=== PATIENT | female | born 1985 | race Caucasian/White ===

== ENCOUNTER 2016-09-06 15:11 | Emergency (ER) | payer OTHER ==
[2016-09-06] MEDS ORDERED: Lidocaine 2%Visc 15ml 20 MG/ML UDC PO ONE (15:52)
[2016-09-06] MEDS ORDERED: MAG HYDROX/AL HYDROX/SIMETH 30 ML UDC PO ONE (15:52)
[2016-09-06] MEDS ORDERED: HYOSCYAMINE SULFATE 0.125 MG TAB.SUBL SL ONE (16:00)
[2016-09-06 16:48] LABS: BASOPHILS % 0.4 (0.0-1.5); EOSINOPHILS % 1.9 % (0.0-6.8); LYMPHOCYTES # 2.6 # k/uL (0.6-4.0); MEAN CORPUSCULAR HEMOGLOBIN 28.7 pg (28.0-34.0); MONOCYTES # 0.3 # k/uL (0.0-0.9); NEUTROPHILS # 5.7 # k/uL (1.4-7.7)
[2016-09-06 17:04] LABS: eGFR (African) > 60; eGFR (Non-African) > 60
[2016-09-06] MEDS ORDERED: PANTOPRAZOLE SODIUM 40 MG TABLET PO ONE (17:44)
[2016-09-06] MEDS ORDERED: SUCRALFATE 1 GM TABLET PO ONE (17:53)
[2016-09-06] MEDS ORDERED: SUCRALFATE 1 GM TABLET PO SCH (18:00)
[2016-09-06 18:09] VITALS: BP 132/86
--- NOTE | 2016-09-06 18:31 | ED Physician Documentation ---
Abdominal Pain - HISTORIAN Historian: patient - HPI Stated Complaint: abdominal pain abdominal pain x2 days, and on et off chest pain Chief Complaint: Abdominal Pain Additonal Information: just treated for H.Pylori gastritis Onset: days ago (2) Duration: waxing, waning, sudden-onset Timing: still present Context: denies: out of country travel, bad food, recent trauma Severity: moderate Quality: aching, other (pinching) Front/Back of Body, Lg (Color): 1 - pain Associated Symptoms: chest pain Exacerbated by: nothing Relieved by: nothing Further Comments: no - ROS CONST: no problems GI/: denies: constipation, black stools, bloody urine, bloody stools, dark urine, problems urinating CVS/RESP: none EYES/ENT: none MS/SKIN/LYMPH: none NEURO/PSYCH: none - SOCIAL HX Smoking History: cigarettes Alcohol Use: none Drug Use: none - FAMILY HX Family History: gall stones, ulcer - PAST HX Past History: GERD, other (a fib) Other History: other (anxiety) Surgeries/Procedures: none Immunizations: referred to PCP Home Medications: Ambulatory Orders Medication Instructions Recorded LORazepam [Ativan] 0.5 mg PO TID 09/06/16 Allergies/Adverse Reactions: Allergies Allergy/AdvReac Type Severity Reaction Status Date / Time bupropion HCl Allergy Unknown No Reaction Verified 09/06/16 15:32 [From Wellbutrin] carbamazepine [From Tegretol] Allergy rash Verified 09/06/16 15:32 - VITAL SIGNS Vital Signs: Vital Signs Temp Pulse Resp BP Pulse Ox 97.8 F 89 16 132/86 97 09/06/16 15:38 09/06/16 18:06 09/06/16 18:06 09/06/16 18:06 09/06/16 18:06 - REVIEWED ASSESSMENTS Nursing Assessment Reviewed: Yes Vitals Reviewed: Yes Progress - Results/Orders Results/Orders: cbc, cmp, amylase ordered - Progress Progress: pt. given gi cocktail, helped pain to a 0/10 Critical Care Note - Critical Care Note Total Time (mins): 0 ED Results Lab/Radiology - Lab Results Lab Results: Lab Results 09/06/16 09/06/16 16:40 16:40 WBC 8.80 K/ul K/ul (4.00-12.00) RBC 5.44 M/ul H M/ul (3.90-5.20) Hgb 15.6 g/dL g/dL (12.0-16.0) Hct 44.5 % % (34.5-46.5) MCV 81.7 fl fl (80.0-100.0) MCH 28.7 pg pg (28.0-34.0) MCHC 35.2 g/dL g/dL (30.0-36.0) RDW 14.2 % % (11.3-14.3) Plt Count 317 K/mm3 K/mm3 (130-400) Neut % (Auto) 64.5 % % (39.0-79.0) Lymph % (Auto) 29.5 % % (16.0-50.0) [place] % (Auto) 3.0 % % (0.0-11.0) Eos % (Auto) 1.9 % % (0.0-6.8) Baso % (Auto) 0.4 (0.0-1.5) Neut # 5.7 # k/uL # k/uL (1.4-7.7) Lymph # 2.6 # k/uL # k/uL (0.6-4.0) [place] # 0.3 # k/uL # k/uL (0.0-0.9) Eos # 0.2 # k/uL # k/uL (0.0-0.6) Baso # 0.0 # k/uL # k/uL (0.0-0.5) Reactive Lymphs % 0.8 % % (0.0-5.0) Reactive Lymphs # 0.1 # k/uL # k/uL (0.0-0.8) Sodium 133 mmol/L L mmol/L (136-145) Potassium 3.2 mmol/L L mmol/L (3.5-5.0) Chloride 96 mmol/L L mmol/L (98-110) Carbon Dioxide 28 mmol/L mmol/L (20-32) BUN 11 mg/dL mg/dL (10-26) Creatinine 0.5 mg/dL mg/dL (0.4-1.5) Estimated Creat Clear 304 Est GFR ( Amer) > 60 (60 - ) Est GFR (Non-Af Amer) > 60 (60 - ) Glucose 118 mg/dL H mg/dL (70-99) Calcium 10.7 mg/dL H mg/dL (8.5-10.5) Total Bilirubin 0.4 mg/dL mg/dL (0.2-1.2) AST 17 U/L U/L (0-41) ALT 21 U/L U/L (0-45) Alkaline Phosphatase 107 U/L U/L (46-116) Total Protein 7.6 g/dL g/dL (6.0-8.5) Albumin 4.4 g/dL g/dL (3.0-5.5) Amylase 40 U/L U/L (20-104) - Radiology Radiology Impressions: none ordered - Orders Orders: ED Orders Category Date Time Status AMYLASE Routine Lab 09/06/16 16:40 Completed CBC/PLATELET/DIFF Routine Lab 09/06/16 16:40 Completed CMP Routine Lab 09/06/16 16:40 Completed Hyoscyamine Sulfate [Oscimin Sl] Med 09/06/16 16:00 Discontinued 0.25 mg SL NOW ONE Lidocaine 2%Visc 15ml [Xylocaine] Med 09/06/16 15:52 Discontinued 15 mg PO NOW ONE Mag Hydrox/Al Hydrox/Simeth [Mylanta] Med 09/06/16 15:52 Discontinued 30 ml PO NOW ONE Pantoprazole Sodium [Protonix] Med 09/06/16 17:44 Discontinued 40 mg PO NOW ONE Sucralfate [Carafate] Med 09/06/16 18:00 Ordered 1 gm PO 1T EKG WITH COMPARISON Routine Ther 09/06/16 Ordered Abdominal Pain Physical Exam - Physical Exam General Appearance: alert, moderate distress EENT: eye inspection normal, ENT inspection normal, pharynx normal, no signs of dehydration, KATERINE, no nystagmus, TM's nml NECK: normal inspection, thyroid normal, supple RESPIRATORY: no resp distress, chest non-tender, breath sounds normal CVS: reg rate & rhythm, heart sounds normal, equal pulses, no murmur, no gallop , PMI nml ABDOMEN: soft, no organomegaly, tenderness (epigastrium), decreased BS BACK: normal inspection, no CVA tenderness SKIN: warm/dry, normal color EXTREMITIES: non-tender, normal range of motion, no evidence of injury, no edema NEURO: oriented X3, CN's nml as tested, motor nml, sensation nml Vital Signs: Vital Signs Temp Pulse Resp BP Pulse Ox 97.8 F 89 16 132/86 97 09/06/16 15:38 09/06/16 18:06 09/06/16 18:06 09/06/16 18:06 09/06/16 18:06 Discharge Clincal Impression: Gastritis Qualifiers: Gastritis type: unspecified gastritis Chronicity: unspecified Gastritis bleeding: without bleeding Qualified Code(s): K29.70 - Gastritis, unspecified, without bleeding Home Medications: Ambulatory Orders LORazepam [Ativan] 0.5 mg PO TID 09/06/16 Comments: discharged in stable condition with scripts for carafate ac and hs, nexium 40 mg daily both for 3 weeks Condition: Stable Disposition: 01 HOME, SELF-CARE Decision to Admit: NO Decision Time: 18:20
== END 2016-09-06 17:50 | disposition home or self-care (01) ==
LOC: ED 15:11
DX: K29.70 Gastritis, unspecified, without bleeding (principal)
CPT/HCPCS: 80053; 82150; 85025; 93005; A9270; 99283

== ENCOUNTER 2016-11-10 17:05 | Emergency (ER) | payer OTHER ==
[2016-11-10 18:01] VITALS: BP 142/83
--- NOTE | 2016-11-10 18:02 | ED Physician Documentation ---
Skin Rash - HISTORIAN Historian: patient - HPI Stated Complaint: rash Chief Complaint: Skin Rash Additional Information: generalized puritic skin rash onset approx 3-4 days ago - no known exposure. alsoc/o exab epigastric and low sternal cp. on nexium prev hx h. pylori no dietary or other suspect etiol. pot has int at fib but in sinus rhythm today Onset: days ago (3-4) Timing: still present Duration: persistent since, intermittent pain Location: generalized (rash-puritic) Identified Cause?: No Context: Medication Exposure: none (no new recently taken off metoprolol) Context: Food Exposure: none Context: Other Exposure: denies: bee sting, wasp sting, ant bite, spider bite, poison henrik - ROS CONST: none (except as above) CVS/RESP: other (hx int at fib) EYES/ENT: none GI/: denies: vomiting, nausea MS/SKIN/LYMPH: none NEURO/PSYCH: anxiety - PAST HX Past History: A-Fib, CAD, other (h pylori anxiety gerd seizure-none fofr over 1 yr obst sleep apnea hyperlipidemia 7/800) Other History: none Surgeries/Procedures: Yes (septum t/a) Allergies/Adverse Reactions: Allergies Allergy/AdvReac Type Severity Reaction Status Date / Time bupropion HCl Allergy Unknown No Reaction Verified 11/10/16 17:22 [From Wellbutrin] carbamazepine [From Tegretol] Allergy rash Verified 11/10/16 17:22 Home Medications: Ambulatory Orders Medication Instructions Recorded Lorazepam [Ativan] 1 mg PO TID u2 11/02/16 Ergocalciferol (Vitamin D2) 50,000 unit PO WEEK 11/10/16 [Vitamin D2] Esomeprazole Magnesium [Nexium] 40 mg PO BID 11/10/16 - SOCIAL HX Smoking History: greater than 1 pack/day Alcohol Use: none Drug Use: none - FAMILY HX Family History: other (father w/ cigarette heart disewase) - VITAL SIGNS Vital Signs: Vital Signs Temp Pulse Resp BP Pulse Ox 98.2 F 89 20 135/80 98 11/10/16 17:25 11/10/16 17:25 11/10/16 17:25 11/10/16 17:25 11/10/16 17:25 - REVIEWED ASSESSMENTS Nursing Assessment Reviewed: Yes Vitals Reviewed: Yes Skin Rash Physical Exam - EXAM General Appearance: mild distress Skin: warm,dry, skin rash, erythema Location: generalized Character: asymmetric, macular, papular Symptoms: warmth Extremities: non-tender, nml ROM, no edema EENT: eyes nml inspection Neck: trachea midline, no swelling. No: stiff neck Respiratory: no resp distress, chest non-tender, breath sounds normal CVS: reg. rate & rhythm, heart sounds nml Abdomen: No: non-tender (epigastric area) Neuro/Psych: oriented x3, motor nml, sensation nml, mood/affect nml Discharge Clincal Impression: contact dermatitis udo, gerd, FRANKIE OBESITY AT FIB Home Medications: Ambulatory Orders Lorazepam [Ativan] 1 mg PO TID u2 11/02/16 Ergocalciferol (Vitamin D2) [Vitamin D2] 50,000 unit PO WEEK 11/10/16 Esomeprazole Magnesium [Nexium] 40 mg PO BID 11/10/16 Comments: ZANTAC FOR RASH AND GERD PLUS MYLANTA---[facility] Condition: Good Disposition: 01 HOME, SELF-CARE Decision to Admit: NO Decision Time: 18:13
== END 2016-11-10 17:59 | disposition home or self-care (01) ==
LOC: ED 17:05
DX: L25.9 Unspecified contact dermatitis, unspecified cause (principal); K21.9 Gastro-esophageal reflux disease without esophagitis; G47.33 Obstructive sleep apnea (adult) (pediatric); E66.9 Obesity, unspecified
CPT/HCPCS: 99283

== ENCOUNTER 2016-12-27 19:11 | Emergency (ER) | payer OTHER ==
[2016-12-27 19:27] VITALS: BP 137/87
[2016-12-27] MEDS ORDERED: CIPROFLOXACIN HCL 500 MG TABLET PO ONE (19:38)
[2016-12-27] MEDS ORDERED: CIPROFLOXACIN HCL/DEXAMETH 7.5 ML DROPS.SUSP OT ONE (19:40)
[2016-12-27] MEDS ORDERED: KETOROLAC TROMETHAMINE 60 MG/2 ML VIAL IM ONE (19:40)
--- NOTE | 2016-12-27 21:37 | ED Physician Documentation ---
Ear Complaints - HISTORIAN Historian: patient - HPI Stated Complaint: Lt earache since last night Chief Complaint: Ear Complaints Additional Information: pain since 12/28/16 Timing: still present Location of Pain: L ear Severity: moderate Associated Symptoms: jaw pain Further Comments: no - ROS CONST: no problems CVS/RESP: none GI/: denies: black stools, nausea, vomiting MS/SKIN/LYMPH: none NEURO/PSYCH: denies: weakness, numbness, anxiety, depression All Systems -: Yes - PAST HX Past History: ear tubes, frequent ear infections, other (hypothyroidism) Immunizations: referred to PCP Allergies/Adverse Reactions: Allergies Allergy/AdvReac Type Severity Reaction Status Date / Time bupropion HCl Allergy Unknown No Reaction Verified 12/27/16 19:28 [From Wellbutrin] carbamazepine [From Tegretol] Allergy rash Verified 12/27/16 19:28 Home Medications: Ambulatory Orders Medication Instructions Recorded Lorazepam [Ativan] 1 mg PO TID u2 11/02/16 Ergocalciferol (Vitamin D2) 50,000 unit PO WEEK 11/10/16 [Vitamin D2] Esomeprazole Magnesium [Nexium] 40 mg PO BID 11/10/16 Simvastatin [Zocor] 20 mg PO D 12/27/16 Venlafaxine HCl [Effexor] 37.5 mg PO D 12/27/16 - SOCIAL HX Smoking History: cigarettes Alcohol Use: occasionally Drug Use: none - FAMILY HX Family History: Yes - VITAL SIGNS Vital Signs: Vital Signs Temp Pulse Resp BP Pulse Ox 98.2 F 106 H 22 137/87 97 12/27/16 19:11 12/27/16 20:06 12/27/16 20:06 12/27/16 20:06 12/27/16 19:11 - REVIEWED ASSESSMENTS Nursing Assessment Reviewed: Yes Vitals Reviewed: Yes Progress - Results/Orders Results/Orders: no testing ordered - Progress Progress: pt. stable entire time in er Critical Care Note - Critical Care Note Total Time (mins): 0 ED Results Lab/Radiology - Lab Results Lab Results: none ordered - Radiology Radiology Impressions: none ordered - Orders Orders: ED Orders Category Date Time Status Ciprofloxacin HCl [Cipro] Med 12/27/16 19:38 Discontinued 500 mg PO NOW ONE Ciprofloxacin HCl/Dexameth [Ciprodex Otic Suspension] Med 12/27/16 19:40 Discontinued 2 ml OT 1T ONE Ketorolac Tromethamine [Toradol] Med 12/27/16 19:40 Discontinued 60 mg IM NOW ONE Ear Complaint Physical Exam - EXAM General Appearance: no acute distress, alert Ear: auricle nml, cold reduction roller.canal nml, pain w movement of auricl, left, fluid behind TM Mouth/Throat: lips nml, gums nml, pharynx nml Nose: nml inspection Head/Neck: atraumatic, neck nml inspection Eye: eyes nml inspection, PERRL Resp/CVS: chest non-tender, breath sounds nml, heart sounds nml, no resp. distress, lungs clear, reg. rate & rhythm Abdomen: non-tender, no organomegaly Skin: nml color, no skin rash Neuro/Psych: oriented x3, mood/affect nml Discharge Clincal Impression: Otitis media Qualifiers: Otitis media type: suppurative Chronicity: acute Laterality: left Recurrence: not specified as recurrent Spontaneous tympanic membrane rupture: without spontaneous rupture Qualified Code(s): H66.002 - Acute suppurative otitis media without spontaneous rupture of ear drum, left ear Referrals: Yanira Berger MD [Primary Care Provider] - 2 Days Home Medications: Ambulatory Orders Lorazepam [Ativan] 1 mg PO TID u2 11/02/16 Ergocalciferol (Vitamin D2) [Vitamin D2] 50,000 unit PO WEEK 11/10/16 Esomeprazole Magnesium [Nexium] 40 mg PO BID 11/10/16 Simvastatin [Zocor] 20 mg PO D 12/27/16 Venlafaxine HCl [Effexor] 37.5 mg PO D 12/27/16 Comments: discharged with scripts for ciprodex, cipro and meloxicam Condition: Stable Disposition: 01 HOME, SELF-CARE Decision to Admit: NO Decision Time: 20:00
== END 2016-12-27 19:50 | disposition home or self-care (01) ==
LOC: ED 19:11
DX: H66.002 Acute suppurative otitis media without spontaneous rupture of ear drum, left ear (principal)
CPT/HCPCS: 99283

== ENCOUNTER 2017-09-24 18:06 | Emergency (ER) | payer OTHER ==
--- NOTE | 2017-09-24 18:22 | ED Physician Documentation ---
Sore Throat/Dental Pain - HISTORIAN Historian: patient - HPI Chief Complaint: Sore Throat Additional Information: Patient has been in close contact with someone who has similar symptoms. Has been drinking after her. Has been nauseated with several episodes of emisis. No blood noted. Has had chills, no know fever. Mild left ear pain. No cough or nasal congestion at this time. Onset: days ago (2 days) Associated Symptoms: chills, sore throat, mild. denies: fever Further Comments: no - ROS CONST: no problems - PAST HX Past History: other (atrail fib, intracranial hypertension,) Other History: other (depression) Immunizations: referred to PCP Allergies/Adverse Reactions: Allergies Allergy/AdvReac Type Severity Reaction Status Date / Time bupropion HCl Allergy Unknown No Reaction Verified 09/24/17 18:29 [From Wellbutrin] carbamazepine [From Tegretol] Allergy rash Verified 09/24/17 18:29 Home Medications: Ambulatory Orders Medication Instructions Recorded Lorazepam [Ativan] 1 mg PO TID u2 11/02/16 Ergocalciferol (Vitamin D2) 50,000 unit PO WEEK 11/10/16 [Vitamin D2] Simvastatin [Zocor] 20 mg PO D 12/27/16 - SOCIAL HX Smoking History: less than 1 pack/day (1/2 ppd) Alcohol Use: none Drug Use: none - FAMILY HX Family History: No - VITAL SIGNS Vital Signs: Vital Signs Temp Pulse Resp BP Pulse Ox 98.7 F 95 H 16 151/90 98 09/24/17 18:08 09/24/17 18:08 09/24/17 18:08 09/24/17 18:08 09/24/17 18:08 - REVIEWED ASSESSMENTS Nursing Assessment Reviewed: Yes Vitals Reviewed: Yes ED Results Lab/Radiology - Lab Results Lab Results: Rapid strep negative - Orders Orders: ED Orders Category Date Time Status Rapid Strep [GRP A STREP SCREEN] Routine Lab 09/24/17 Ordered Sore throat Physical Exam - EXAM General Appearance: no acute distress, alert Head/Neck: head nml inspection, trachea midline, no lymphadenopathy, thyroid nml. No: cervical lymphadenopathy Mouth/Throat: lips nml, gums nml, voice nml, no drooling, no air way problems, pharyngeal erythema (mild). No: tonsillar exudate Ear/Nose: nml inspection Respiratory: no resp. distress, breath sounds nml, respiratory distress. No: wheezes, rales, rhonchi CVS: reg. rate & rhythm, heart sounds nml Abdomen: soft, no organomegaly, normal bowel sounds Skin: warm/dry Neuro/Psych: oriented x3 Discharge Clincal Impression: Upper respiratory infection Qualifiers: URI type: acute pharyngitis Referrals: Yanira Berger MD [Primary Care Provider] - 2 Days Additional Instructions: Drink a lot of fluids. Gargle with salt water. Do not drink or eat after anyone else. Take Tylenol to help with any pain or fever. A throat culture will be sent out, if it comes back positive for strep we will let you know. . Condition: Stable Disposition: 01 HOME, SELF-CARE Decision to Admit: NO Date of Decison to Admit: 09/24/17 Decision Time: 18:48
[2017-09-24 18:29] VITALS: BP 151/90
== END 2017-09-24 18:55 | disposition home or self-care (01) ==
LOC: ED 18:06
DX: J02.9 Acute pharyngitis, unspecified (principal)
CPT/HCPCS: 87070; 87880; 99282

== ENCOUNTER 2017-10-03 17:14 | Outpatient (CLI) | payer OTHER ==
[2017-10-03 17:52] LABS: BASOPHILS % 0.8 (0.0-1.5); EOSINOPHILS % 2.5 % (0.0-6.8); MEAN CORPUSCULAR HEMOGLOBIN 28.6 pg (28.0-34.0); MEAN CORPUSCULAR VOLUME 82.9 fl (80.0-100.0); MONOCYTES % 3.5 % (0.0-11.0)
[2017-10-03 18:08] LABS: eGFR (African) > 60; eGFR (Non-African) > 60
== END 2017-10-03 17:15 ==
LOC: LAB 17:14
PROVIDERS: ATTEND Physician Assistant
DX: R10.13 Epigastric pain (principal); R19.7 Diarrhea, unspecified
CPT/HCPCS: 36415; 80053; 85025; 86677

== ENCOUNTER 2017-12-27 14:32 | Outpatient (CLI) | payer OTHER ==
[2017-12-27 14:43] LABS: BASOPHILS % 0.7 (0.0-1.5); EOSINOPHILS % 1.9 % (0.0-6.8); MEAN CORPUSCULAR HEMOGLOBIN 27.8 pg (28.0-34.0); MEAN CORPUSCULAR VOLUME 82.3 fl (80.0-100.0); MONOCYTES % 3.2 % (0.0-11.0); NEUTROPHILS # 7.6 # k/uL (1.4-7.7)
[2017-12-27 15:18] LABS: eGFR (Non-African) > 60
== END 2017-12-27 14:59 ==
LOC: LAB 14:32
PROVIDERS: ATTEND Family Medicine
DX: Z51.81 Encounter for therapeutic drug level monitoring (principal); E55.9 Vitamin D deficiency, unspecified; E78.1 Pure hyperglyceridemia
CPT/HCPCS: 36415; 80053; 80061; 82306; 85025

== ENCOUNTER 2018-01-02 16:21 | Outpatient (CLI) | payer OTHER | END 2018-01-02 16:30 | LOC: RT 16:21 | PROVIDERS: ATTEND Internal Medicine Cardiovascular Disease | DX: I48.0 Paroxysmal atrial fibrillation (principal) ==

== ENCOUNTER 2018-02-20 20:49 | Emergency (ER) | payer OTHER ==
[2018-02-20 21:10] VITALS: BP 120/83
--- NOTE | 2018-02-20 21:17 | ED Physician Documentation ---
General Adult - HISTORIAN Historian: patient - HPI Stated Complaint: Left ear pain Chief Complaint: General Adult Additional Information: hours ago she heard strange noises in her left ear and a pop. Clear fluid drained from left ear continues to do so. Says ear hurts now. Denies fever, congestion. Takes ibuprofen and tylenol regularly for migraines and has not taken anything else for left ear. Denies putting anything into left ear. No other modifying factors or associated signs. - ROS CONST: denies: fever, recent illness - PAST HX Past History: A-Fib, other (HLD, migraines, intracranial hypertension) Surgeries/Procedures: other (PE tubes, additional surgery L ear as a child) Allergies/Adverse Reactions: Allergies Allergy/AdvReac Type Severity Reaction Status Date / Time bupropion HCl Allergy Unknown No Reaction Verified 02/20/18 21:06 [From Wellbutrin] carbamazepine [From Tegretol] Allergy rash Verified 02/20/18 21:06 promethazine [From Phenergan] Allergy Rash Verified 02/20/18 21:06 Home Medications: Ambulatory Orders Medication Instructions Recorded Lorazepam [Ativan] 1 mg PO TID u2 11/02/16 Ergocalciferol (Vitamin D2) 50,000 unit PO WEEK 11/10/16 [Vitamin D2] Simvastatin [Zocor] 20 mg PO D 12/27/16 Venlafaxine HCl [Effexor Cr] 75 mg PO DAILY av 12/27/17 Cephalexin [Keflex] 500 mg PO Q6H #40 capsule 02/20/18 - SOCIAL HX Smoking History: cigarettes (1 PPD since 13 y/o) - FAMILY HX Family History: No - VITAL SIGNS Vital Signs: Vital Signs Temp Pulse Resp BP Pulse Ox 151/90 09/24/17 18:55 - REVIEWED ASSESSMENTS Nursing Assessment Reviewed: Yes Vitals Reviewed: Yes General Adult Physical Exam - PHYSICAL EXAM GENERAL APPEARANCE: mild distress (anxious) EENT: eye inspection normal, pharynx normal, no signs of dehydration, TM's nml (right), other (air/fluid levels behind left TM, Cannot visualize perf. Clear flud in canal.) NECK: normal inspection, supple RESPIRATORY: no resp distress BACK: other (fluid movements w/o pain) SKIN: warm/dry, normal color EXTREMITIES: no evidence of injury NEURO: CN's nml as tested, motor nml, sensation nml, cognition normal Discharge Clincal Impression: Perforation of tympanic membrane, nontraumatic Qualifiers: Laterality: left Qualified Code(s): H72.92 - Unspecified perforation of tympanic membrane, left ear Referrals: Adilson Andrea MD [Primary Care Provider] - 2 Days Condition: Fair Disposition: 01 HOME, SELF-CARE Decision to Admit: NO Decision Time: 21:20
[2018-02-20] MEDS: CEPHALEXIN 250 MG/5 ML BTL PO ONE (21:18)
== END 2018-02-20 21:15 | disposition home or self-care (01) ==
LOC: ED 20:49
DX: H72.92 Unspecified perforation of tympanic membrane, left ear (principal)
CPT/HCPCS: 99282

== ENCOUNTER 2018-02-26 15:22 | Outpatient (CLI) | payer OTHER ==
--- NOTE | 2018-03-18 12:43 | OP Clinic Progress Note ---
REASON FOR VISIT: This 32-year-old female is seen in follow up of a left ear rupture, history of tympanostomies, and a right ear tympanoplasty. She has reduced hearing. She has used some Keflex previously. There has been otorrhea. There were sclerotic changes of the right eardrum of the berry-tympanum. There is a tiny perforation of the left ear with oozing. PLAN: She is changed to Augmentin 875 mg 1 twice a day for 10 days. Follow up in 2 weeks. cc: Dr. Adilson HERNANDEZ
== END 2018-02-26 15:23 ==
LOC: ENT 15:22
PROVIDERS: ATTEND Otolaryngology
DX: H66.90 Otitis media, unspecified, unspecified ear (principal)
CPT/HCPCS: 99213

== ENCOUNTER 2018-03-10 11:20 | Emergency (ER) | payer OTHER ==
[2018-03-10 11:34] VITALS: BP 148/97
--- NOTE | 2018-03-10 11:39 | ED Physician Documentation ---
General Adult - HISTORIAN Historian: patient - HPI Stated Complaint: EARACHE Chief Complaint: General Adult Onset: days ago Timing: still present Severity: moderate Further Comments: yes (Pt is a 32 yo female with L ear pain. Pt has had L ear pain and was seen by pcp and ENT and was rx'd abx and allergy meds. Ear pain persists, but now pt has generalized malaise achiness.) - ROS CONST: other (malaise, achy all over) EYES/ENT: other (L ear pain) CVS/RESP: none GI/: none MS/SKIN/LYMPH: none - PAST HX Past History: other (Afib, anxiey, HTN) Allergies/Adverse Reactions: Allergies Allergy/AdvReac Type Severity Reaction Status Date / Time bupropion HCl Allergy Unknown No Reaction Verified 03/10/18 11:35 [From Wellbutrin] carbamazepine [From Tegretol] Allergy rash Verified 03/10/18 11:35 promethazine [From Phenergan] Allergy Rash Verified 03/10/18 11:35 Home Medications: Ambulatory Orders Medication Instructions Recorded Lorazepam [Ativan] 1 mg PO TID u2 11/02/16 Ergocalciferol (Vitamin D2) 50,000 unit PO WEEK 11/10/16 [Vitamin D2] Simvastatin [Zocor] 20 mg PO D 12/27/16 Venlafaxine HCl [Effexor Cr] 75 mg PO DAILY av 12/27/17 - SOCIAL HX Smoking History: cigarettes - FAMILY HX Family History: No - VITAL SIGNS Vital Signs: Vital Signs Temp Pulse Resp BP Pulse Ox 99 F 78 20 148/97 98 03/10/18 11:31 03/10/18 11:31 03/10/18 11:31 03/10/18 11:31 03/10/18 11:31 - REVIEWED ASSESSMENTS Nursing Assessment Reviewed: Yes Vitals Reviewed: Yes Progress - Progress Progress: Rx Z-stevie. Use as directed. Rx Tramadol 50 mg. Take one every 6 hours as needed for pain. Follow up with ENT specialist if symptoms persist. General Adult Physical Exam - PHYSICAL EXAM GENERAL APPEARANCE: moderate distress EENT: eye inspection normal, pharynx normal, TM erythema NECK: normal inspection, supple. No: lymphadenopathy RESPIRATORY: no resp distress, chest non-tender, breath sounds normal CVS: reg rate & rhythm, heart sounds normal BACK: normal inspection, no CVA tenderness SKIN: warm/dry, normal color EXTREMITIES: non-tender, normal range of motion, no evidence of injury, no edema NEURO: oriented X3, motor nml, sensation nml Discharge Clincal Impression: persistent L ear pain Referrals: Adilson Andrea MD [Primary Care Provider] - Condition: Good Disposition: 01 HOME, SELF-CARE Decision to Admit: NO Decision Time: 11:55
== END 2018-03-10 11:56 | disposition home or self-care (01) ==
LOC: ED 11:20
DX: H92.02 Otalgia, left ear (principal)
CPT/HCPCS: 99282

== ENCOUNTER 2018-03-19 03:56 | Emergency (ER) | payer OTHER ==
[2018-03-19] MEDS ORDERED: 0.9 % SODIUM CHLORIDE 1,000 ML IV ONE ×2 (04:20→05:10)
--- NOTE | 2018-03-19 04:20 | ED Physician Documentation ---
General Adult - HISTORIAN Historian: patient - HPI Stated Complaint: R flank pain Chief Complaint: General Adult Onset: hours Timing: still present Severity: moderate Further Comments: yes (Pt is a 32 yo female with R flank pain. Pain awoke pt from sleep. Pt has had n/v. No fever. BM's have been normal.) - ROS CONST: no problems EYES/ENT: none CVS/RESP: none GI/: abdominal pain, vomiting, nausea MS/SKIN/LYMPH: none - PAST HX Past History: other (Afib, intracranial hypertension, seizures, anxiety.) Surgeries/Procedures: other (tonsilectomy) Allergies/Adverse Reactions: Allergies Allergy/AdvReac Type Severity Reaction Status Date / Time bupropion HCl Allergy Unknown No Reaction Verified 03/19/18 04:31 [From Wellbutrin] carbamazepine [From Tegretol] Allergy rash Verified 03/19/18 04:31 promethazine [From Phenergan] Allergy Rash Verified 03/19/18 04:31 Home Medications: Ambulatory Orders Medication Instructions Recorded Lorazepam [Ativan] 1 mg PO TID u2 11/02/16 Ergocalciferol (Vitamin D2) 50,000 unit PO WEEK 11/10/16 [Vitamin D2] Simvastatin [Zocor] 20 mg PO D 12/27/16 Venlafaxine HCl [Effexor Cr] 75 mg PO DAILY av 12/27/17 Acetaminophen [Tylenol] 650 mg PO Q4 PRN 03/19/18 Ibuprofen 200 mg PO Q6 PRN 03/19/18 - SOCIAL HX Smoking History: cigarettes - FAMILY HX Family History: No - VITAL SIGNS Vital Signs: Vital Signs Temp Pulse Resp BP Pulse Ox 148/97 03/10/18 11:57 - REVIEWED ASSESSMENTS Nursing Assessment Reviewed: Yes Vitals Reviewed: Yes Progress - Progress Progress: NS 1 L IVF Zofran 4 mg IV Toradol 30 mg IV Dilaudid 0.5 mg IV (Pt said she does not like IV meds and would take only 1/2 the intended 1 mg dose.) NS 1 L IVF Percocet 5/325 2 tablets po in ER. U/a - 3+ blood; neg nitrites; neg leukocytes. CT abd/pelvis w/o contrast: Urinary tract: There are bilateral nonobstructing renal calculi. There is mild right hydronephrosis without ureteral calculi. No left hydronephrosis or hydroureter bilaterally. No urinary bladder calculi. Miscellaneous: There are calcified granulomas in the liver and spleen. The liver is diffusely dilated and enlarged up to 24 cm cephalocaudal. The spleen is enlarged up to 14.8 cm cephalocaudal. The noncontrast pancreas, gallbladder, adrenal glands are unremarkable. No abnormal bowel dilatation, free air, free fluid, or suspicious adenopathy. The appendix is not dilated and does not appear inflamed. There are mild degenerative changes of the hips. There is mild lumbar degenerative disc disease. There is a lumbosacral transitional vertebrae with partial lumbarization of S1. IMPRESSION: 1. Bilateral nonobstructing nephrolithiasis. 2. Mild right hydronephrosis without hydroureter or evidence of obstructing calculi. This appearance may be due to recently passed calculus from the right urinary tract. 3. Diffuse fatty infiltration of the liver and hepatosplenomegaly. ? non-opaque stone d/c instructions: Rx Percocet (5/325). Take one or two tablets by mouth every 4 to 6 hours as needed for moderate to severe pain. Rx Zofran 4 mg ODT. Take one every 8 hours as needed for nausea/vomiting. Rx Bactrim DS. Take one every 12 hours for 7 days. Rx Tamsulosin 0.4 mg. Take one by mouth once daily for 5 days or until stone passes. General Adult Physical Exam - PHYSICAL EXAM GENERAL APPEARANCE: moderate distress EENT: pharynx normal NECK: normal inspection, supple RESPIRATORY: no resp distress, chest non-tender, breath sounds normal CVS: reg rate & rhythm, heart sounds normal ABDOMEN: soft, normal bowel sounds, tenderness (R) BACK: normal inspection, CVA tenderness (R) SKIN: warm/dry, normal color EXTREMITIES: non-tender, normal range of motion, no evidence of injury NEURO: oriented X3, motor nml, sensation nml Discharge Clincal Impression: Right flank pain, ? non-opaque kidney stone Referrals: Adilson Andrea MD [Primary Care Provider] - Condition: Stable Disposition: 01 HOME, SELF-CARE Decision to Admit: NO Decision Time: 06:34
[2018-03-19] MEDS ORDERED: ONDANSETRON HCL/PF 4 MG/ 2ML VIAL IVP ONE (04:21)
[2018-03-19] MEDS ORDERED: KETOROLAC TROMETHAMINE 30 MG/1ML VIAL IVP ONE (04:23)
[2018-03-19 04:30] LABS: BASOPHILS % 0.7 (0.0-1.5); EOSINOPHILS % 2.1 % (0.0-6.8); MEAN CORPUSCULAR HEMOGLOBIN 28.9 pg (28.0-34.0); MEAN CORPUSCULAR VOLUME 82.3 fl (80.0-100.0); MONOCYTES % 4.3 % (0.0-11.0); NEUTROPHILS # 5.8 # k/uL (1.4-7.7)
[2018-03-19 04:48] LABS: eGFR (Non-African) > 60
[2018-03-19] MEDS ORDERED: HYDROmorphone HCL/PF 2 MG/ML DISP.SYRIN ONE (04:56)
[2018-03-19] MEDS ORDERED: HYDROmorphone HCL/PF 1 MG/ML DISP.SYRIN IVP ONE (04:56)
[2018-03-19] MEDS ORDERED: oxyCODONE/ACETAMINOPHEN 5/325 TABLET PO ONE (05:37)
[2018-03-19 05:48] LABS: COLOR,URINE BROWN (YELLOW)
[2018-03-19 05:49] LABS: APPEARANCE,URINE CLEAR (CLEAR); OCCULT BLOOD,URINE 3+ (NEGATIVE); URINE HCG NEGATIVE (NEGATIVE); UROBILINOGEN URINE 0.2 Eu (0.2-1.0)
[2018-03-19 06:17] VITALS: BP 121/89
[2018-03-19] MEDS ORDERED: TAMSULOSIN HCL 0.4 MG CAP.ER.24H PO ONE ×2 (06:21)
--- NOTE | 2018-03-19 06:35 | Diagnostic Imaging Report ---
LADONNA LEBRON [facility] [address] [facility] [address] [place], [place]. [address] Report Submission Date: Mar 19, 2018 5:01:46 AM CDT Patient Study Name: CATRACHITO ARIAS Date: Mar 19, 2018 4:38:48 AM CDT Modality Type: CT\SR Gender: F Description: CT ABD PELVIS W/O CO : 83 Institution: [facility] Physician: LADONNA LEBRON HISTORY: 32-year-old female with right flank pain, history of urolithiasis. COMPARISON: None available TECHNIQUE: Helical CT images of the abdomen and pelvis were performed without contrast. Sagittal and coronal reformatted images were obtained. FINDINGS: Urinary tract: There are bilateral nonobstructing renal calculi. There is mild right hydronephrosis without ureteral calculi. No left hydronephrosis or hydroureter bilaterally. No urinary bladder calculi. Miscellaneous: There are calcified granulomas in the liver and spleen. The liver is diffusely dilated and enlarged up to 24 cm cephalocaudal. The spleen is enlarged up to 14.8 cm cephalocaudal. The noncontrast pancreas, gallbladder, adrenal glands are unremarkable. No abnormal bowel dilatation, free air, free fluid, or suspicious adenopathy. The appendix is not dilated and does not appear inflamed. There are mild degenerative changes of the hips. There is mild lumbar degenerative disc disease. There is a lumbosacral transitional vertebrae with partial lumbarization of S1. IMPRESSION: 1. Bilateral nonobstructing nephrolithiasis. 2. Mild right hydronephrosis without hydroureter or evidence of obstructing calculi. This appearance may be due to recently passed calculus from the right urinary tract. 3. Diffuse fatty infiltration of the liver and hepatosplenomegaly. Electronically signed on Mar 19, 2018 5:01:46 AM CDT by: Surjit HERNANDEZ
== END 2018-03-19 06:30 | disposition home or self-care (01) ==
LOC: ED 03:56
DX: R10.9 Unspecified abdominal pain (principal)
CPT/HCPCS: 74176; 80053; 81002; 81025; 83690; 85025; A9270; J1170; J1885; J2405; J7030; 96365; 96366; 96375; 99284; S1016

== ENCOUNTER 2018-04-23 22:38 | Emergency (ER) | payer OTHER ==
--- NOTE | 2018-04-23 23:04 | ED Physician Documentation ---
Female Urogenital Problems - HISTORIAN Historian: patient - HPI Stated Complaint: Right flank pain Chief Complaint: Female Urogenital Problems Onset: hours (1200) Further Comments: yes (32 year old female patient presents with complaint of right flank pain. Patient concerned something may be wrong with her kidney. Report "hydro-something" on my CT. Old records reviewed. Patient was seen on 03/19/18 in ER, no obstructing renal calculi on CT, 3+ blood in urine on 03/19/18; patient has not followed up with PCP or urology since ER visit. States pain started today in Right flank at 1200; reports taking tylenol and ibuprofen today. Patient reports her pain feels simlar to her previous ER visit; however, no calculi was seen on CT.) - Associated Symptoms Urinary Symptoms: blood in urine - ROS CONST: none GI/: denies: nausea, vomiting, diarrhea CVS/RESP: none EYES/ENT: none NEURO/PSYCH: none MS/SKIN/LYMPH: none - PAST HX Past History: other (A fib, intracranial HTN, seizures, anxiety) Allergies/Adverse Reactions: Allergies Allergy/AdvReac Type Severity Reaction Status Date / Time bupropion HCl Allergy Unknown No Reaction Verified 04/23/18 23:00 [From Wellbutrin] carbamazepine [From Tegretol] Allergy rash Verified 04/23/18 23:00 promethazine [From Phenergan] Allergy Rash Verified 04/23/18 23:00 Home Medications: Ambulatory Orders Medication Instructions Recorded Lorazepam [Ativan] 1 mg PO TID u2 11/02/16 Ergocalciferol (Vitamin D2) 50,000 unit PO WEEK 11/10/16 [Vitamin D2] Ciprofloxacin HCl [Cipro] 500 mg PO BID #14 tablet 04/24/18 - SOCIAL HX Smoking History: cigarettes - FAMILY HX Family History: denies: none - VITAL SIGNS Vital Signs: Vital Signs Temp Pulse Resp BP Pulse Ox 98.6 F 113 H 20 155/99 98 04/23/18 22:40 04/23/18 22:40 04/23/18 22:40 04/23/18 22:40 04/23/18 22:40 - REVIEWED ASSESSMENTS Nursing Assessment Reviewed: Yes Vitals Reviewed: Yes Progress - Progress Progress: Discussed risk vs benefit of repeat CT abd/pelvis; patient concerned she has a kidney stone. Patient refused stadol and toradol IM Reviewed CT results. Will treat acute cystitis with antibiotic. Instructed patient to see PCP after antibiotics for repeat UA. ED Results Lab/Radiology - Radiology Radiology Impressions: CT abdomen and pelvis without contrast CLINICAL HISTORY: RIGHT FLANK PAIN TONIGHT, HX OF STONES AND FRQUENT UTI. NEGATIVE URINE HCG IN ED TONIGHT. (Hx) / ITS.REASON hematuria, right flank pain (DICOM Hx) TECHNIQUE: 5 mm contiguous axial images of the abdomen and pelvis non contrast. FINDINGS: The lung bases are clear. The evaluation is limited without IV contrast. There is mild diffuse fatty infiltration liver. Noncontrast liver, spleen, adrenal glands and pancreas are otherwise unremarkable. Gallbladder is nondistended. There are bilateral small nonobstructing kidney stones. Urinary bladder is Achilles tendon. The uterus is unremarkable. The bowel loops are nondistended. There is no ascites pneumoperitoneum. The appendix is normal. No lymphadenopathy. No destructive osseous lesions. IMPRESSION: 1. Nonobstructing bilateral kidney stones. 2. Hepatic steatosis Female Urogenital Problems - EXAM General Appearance: mild distress Respiratory: no resp. 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
[2018-04-23] MEDS ORDERED: KETOROLAC TROMETHAMINE 60 MG/2 ML VIAL IM ONE (23:17)
[2018-04-23] MEDS ORDERED: BUTORPHANOL TARTRATE 2 MG/ML VIAL IM ONE (23:17)
--- NOTE | 2018-04-23 23:45 | Diagnostic Imaging Report ---
GENET LOPEZ (METAL GRINDER) - ER [facility] [place] [facility] [address] [facility] [address] [place], [place]. [address] Report Submission Date: Apr 23, 2018 11:43:25 PM CDT Patient Study Name: CATRACHITO ARIAS Date: Apr 23, 2018 11:24:26 PM CDT Modality Type: CT Gender: F Description: CT ABD PELVIS W/O CO : 83 Institution: [facility] [place] [facility] Physician: GENET LOPEZ (METAL GRINDER) - ER CT abdomen and pelvis without contrast CLINICAL HISTORY: RIGHT FLANK PAIN TONIGHT, HX OF STONES AND FRQUENT UTI. NEGATIVE URINE HCG IN ED TONIGHT. (Hx) / ITS.REASON hematuria, right flank pain (DICOM Hx) TECHNIQUE: 5 mm contiguous axial images of the abdomen and pelvis non contrast. FINDINGS: The lung bases are clear. The evaluation is limited without IV contrast. There is mild diffuse fatty infiltration liver. Noncontrast liver, spleen, adrenal glands and pancreas are otherwise unremarkable. Gallbladder is nondistended. There are bilateral small nonobstructing kidney stones. Urinary bladder is Achilles tendon. The uterus is unremarkable. The bowel loops are nondistended. There is no ascites pneumoperitoneum. The appendix is normal. No lymphadenopathy. No destructive osseous lesions. IMPRESSION: 1. Nonobstructing bilateral kidney stones. 2. Hepatic steatosis Electronically signed on Apr 23, 2018 11:43:25 PM CDT by: Gerry HERNANDEZ
[2018-04-24 00:02] LABS: eGFR (Non-African) > 60
[2018-04-24 00:31] VITALS: BP 162/78
[2018-04-24 11:42] LABS: APPEARANCE,URINE CLEAR (CLEAR); COLOR,URINE YELLOW (YELLOW); OCCULT BLOOD,URINE 2+ (NEGATIVE); UROBILINOGEN URINE 0.2 Eu (0.2-1.0)
== END 2018-04-24 00:20 | disposition home or self-care (01) ==
LOC: ED 22:38
DX: R31.9 Hematuria, unspecified (principal); R10.9 Unspecified abdominal pain
CPT/HCPCS: 74176; 80053; 81002; 81025; 99283

== ENCOUNTER 2018-05-09 12:21 | Emergency (ER) | payer OTHER ==
[2018-05-09 13:05] LABS: BASOPHILS % 0.5 (0.0-1.5); MEAN CORPUSCULAR HEMOGLOBIN 28.8 pg (28.0-34.0); MONOCYTES % 5.6 % (0.0-11.0); NEUTROPHILS # 6.1 # k/uL (1.4-7.7)
[2018-05-09 13:06] LABS: eGFR (Non-African) > 60
[2018-05-09] MEDS: ONDANSETRON HCL/PF 4 MG/ 2ML VIAL IVP ONE (13:14)
--- NOTE | 2018-05-09 13:14 | ED Physician Documentation ---
General Adult - HISTORIAN Historian: patient - HPI Stated Complaint: abd pain Chief Complaint: Abdominal Pain Additional Information: intro self as [employer]. pt presents to the ED via POV c/o RLQ abdominal pain. 03/24 dull non radiating. Emesis x 1 episode and diarrhea x 2 episodes today. Pt has a recent hx of 2 ED visits here with CTs for non obstructing nephrolithiasis with the latest visit on 04/23/18. She completed a course of Cipro at that time. She has not been straining her urine and she has had no outpatient follow up. She also reports she has had 2 other head CTs this year. pt also has a small draining abscess on her RLQ. she reports the pain is deeper than surface. pt denies current chest pain, dyspnea, syncope/near syncope, headache, dizziness, visual disturbances, n/v/d, fever, rash, sick contacts, dysuria, tra claire. melena or hematochezia, change in bowel or bladder function. anxiety or depression. ROS Negative unless otherwise specified. pt PCP dr Andrea. pt requests no narcotics be ordered as she is a recovering addict. - ROS CONST: no problems. denies: fever, weakness, chills EYES/ENT: none. denies: sore throat, nasal drainage, nasal congestion CVS/RESP: none. denies: chest pain, shortness of breath GI/: abdominal pain, vomiting, nausea, diarrhea. denies: problems urinating MS/SKIN/LYMPH: none NEURO/PSYCH: denies: headache - PAST HX Past History: A-Fib, other (seizures-last 1 year ago) Other History: seizure disorder Surgeries/Procedures: other (Left TM, Nasal, tonsilectomy. ) Allergies/Adverse Reactions: Allergies Allergy/AdvReac Type Severity Reaction Status Date / Time bupropion HCl Allergy Unknown No Reaction Verified 04/23/18 23:00 [From Wellbutrin] carbamazepine [From Tegretol] Allergy rash Verified 04/23/18 23:00 promethazine [From Phenergan] Allergy Rash Verified 04/23/18 23:00 Home Medications: Ambulatory Orders Medication Instructions Recorded Lorazepam [Ativan] 1 mg PO TID u2 11/02/16 Ergocalciferol (Vitamin D2) 50,000 unit PO WEEK 11/10/16 [Vitamin D2] Ciprofloxacin HCl [Cipro] 500 mg PO BID #14 tablet 04/24/18 - SOCIAL HX Smoking History: less than 1 pack/day - FAMILY HX Family History: No - VITAL SIGNS Vital Signs: Vital Signs Temp Pulse Resp BP Pulse Ox 98.0 F 80 16 137/81 98 05/09/18 12:25 05/09/18 12:25 05/09/18 12:25 05/09/18 12:25 05/09/18 12:25 - REVIEWED ASSESSMENTS Nursing Assessment Reviewed: Yes Vitals Reviewed: Yes Progress - Results/Orders Results/Orders: 1348 Pt reports her pain has improved with the toradol to 10/22. ED Results Lab/Radiology - Lab Results Lab Results: Lab Results 05/09/18 05/09/18 12:35 12:35 WBC 9.50 K/ul K/ul (4.00-12.00) RBC 5.15 M/ul M/ul (3.90-5.20) Hgb 14.8 g/dL g/dL (12.0-16.0) Hct 44.1 % % (34.5-46.5) MCV 86.0 fl fl (80.0-100.0) MCH 28.8 pg pg (28.0-34.0) MCHC 33.6 g/dL g/dL (30.0-36.0) RDW 14.5 % H % (11.3-14.3) Plt Count 311 K/mm3 K/mm3 (130-400) Neut % (Auto) 63.9 % % (39.0-79.0) Lymph % (Auto) 28.0 % % (16.0-50.0) [place] % (Auto) 5.6 % % (0.0-11.0) Eos % (Auto) 2.0 % % (0.0-6.8) Baso % (Auto) 0.5 (0.0-1.5) Neut # (Auto) 6.1 # k/uL # k/uL (1.4-7.7) Lymph # (Auto) 2.7 # k/uL # k/uL (0.6-4.0) [place] # (Auto) 0.0 # k/uL # k/uL (0.0-0.9) Eos # (Auto) 0.2 # k/uL # k/uL (0.0-0.6) Baso # (Auto) 0.1 # k/uL # k/uL (0.0-0.5) Sodium 140 mmol/L mmol/L (136-145) Potassium 4.0 mmol/L mmol/L (3.5-5.1) Chloride 104 mmol/L mmol/L (98-107) Carbon Dioxide 25 mmol/L mmol/L (22-30) BUN 11 mg/dL mg/dL (7-17) Creatinine 0.60 mg/dL mg/dL (0.52-1.04) Estimated Creat Clear 356 Est GFR ( Amer) > 60 (60 - ) Est GFR (Non-Af Amer) > 60 (60 - ) Glucose 103 mg/dL mg/dL (74-106) Calcium 8.9 mg/dL mg/dL (8.4-10.2) Total Bilirubin 0.3 mg/dL mg/dL (0.2-1.3) AST 33 U/L U/L (15-46) ALT 26 U/L U/L (13-69) Alkaline Phosphatase 114 U/L U/L (38-126) Total Protein 7.8 g/dL g/dL (6.3-8.2) Albumin 4.1 g/dL g/dL (3.5-5.0) - Radiology Radiology Impressions: previous ED records reviewed. Pt has a recent Hx of non obstructive kidney stones and has had 4 recent CTs. discussed the Risk of cancer with multiple frequent CTs. we mutually agreed that the pt should forgo CT unless pain becomes worse or not relieved by pain medication. pain was relieved by toradol. Pt agrees with this plan. HISTORY: 32-year-old female with right flank pain, history of urolithiasis. COMPARISON: None available TECHNIQUE: Helical CT images of the abdomen and pelvis were performed without contrast. Sagittal and coronal reformatted images were obtained. FINDINGS: Urinary tract: There are bilateral nonobstructing renal calculi. There is mild right hydronephrosis without ureteral calculi. No left hydronephrosis or hydroureter bilaterally. No urinary bladder calculi. Miscellaneous: There are calcified granulomas in the liver and spleen. The liver is diffusely dilated and enlarged up to 24 cm cephalocaudal. The spleen is enlarged up to 14.8 cm cephalocaudal. The noncontrast pancreas, gallbladder, adrenal glands are unremarkable. No abnormal bowel dilatation, free air, free fluid, or suspicious adenopathy. The appendix is not dilated and does not appear inflamed. There are mild degenerative changes of the hips. There is mild lumbar degenerative disc disease. There is a lumbosacral transitional vertebrae with partial lumbarization of S1. IMPRESSION: 1. Bilateral nonobstructing nephrolithiasis. 2. Mild right hydronephrosis without hydroureter or evidence of obstructing calculi. This appearance may be due to recently passed calculus from the right urinary tract. 3. Diffuse fatty infiltration of the liver and hepatosplenomegaly. Electronically signed on Mar 19, 2018 5:01:46 AM CDT by: Surjit Correa CT abdomen and pelvis without contrast CLINICAL HISTORY: RIGHT FLANK PAIN TONIGHT, HX OF STONES AND FRQUENT UTI. NEGATIVE URINE HCG IN ED TONIGHT. (Hx) / ITS.REASON hematuria, right flank pain (DICOM Hx) TECHNIQUE: 5 mm contiguous axial images of the abdomen and pelvis non contrast. FINDINGS: The lung bases are clear. The evaluation is limited without IV contrast. There is mild diffuse fatty infiltration liver. Noncontrast liver, spleen, adrenal glands and pancreas are otherwise unremarkable. Gallbladder is nondistended. There are bilateral small nonobstructing kidney stones. Urinary bladder is Achilles tendon. The uterus is unremarkable. The bowel loops are nondistended. There is no ascites pneumoperitoneum. The appendix is normal. No lymphadenopathy. No destructive osseous lesions. IMPRESSION: 1. Nonobstructing bilateral kidney stones. 2. Hepatic steatosis Electronically signed on Apr 23, 2018 11:43:25 PM CDT by: Gerry Llanos - Orders Orders: ED Orders Category Date Time Status CBC AUTO DIFF Routine Lab 05/09/18 12:35 Completed CMP Routine Lab 05/09/18 12:35 Received UA [URINALYSIS] Stat Lab 05/09/18 12:42 Ordered URINE HCG [URINE HCG] Stat Lab 05/09/18 Uncollected 0.9 % Sodium Chloride [Normal Saline] 1,000 ml Med 05/09/18 12:40 Discontinued IV .STK-MED Ketorolac Tromethamine [Toradol] Med 05/09/18 13:06 Once 30 mg IVP NOW ONE NORMAL SALINE @ 1000 MLS/HR ( 1000ml BOLUS) Med 05/09/18 13:08 Ordered 0.9 % Sodium Chloride [Normal Saline] 1,000 ml IV Q1H Ondansetron HCl/Pf [Zofran 4 mg/2 ml] Med 05/09/18 13:07 Once 4 mg IVP NOW ONE General Adult Physical Exam - PHYSICAL EXAM GENERAL APPEARANCE: obese EENT: ENT inspection normal, pharynx normal, no signs of dehydration NECK: normal inspection. No: lymphadenopathy RESPIRATORY: no resp distress CVS: reg rate & rhythm, heart sounds normal, equal pulses, no murmur, no gallop ABDOMEN: soft, normal bowel sounds, tenderness (mild RLQ), other (large). No: McBurney's point tenderne, psoas, obturator sign, Rovsing's sign BACK: normal inspection, no CVA tenderness SKIN: warm/dry, other (2 cm circular draining abscess to RLQ. culture obtained. ) EXTREMITIES: non-tender, normal range of motion, no evidence of injury, no edema NEURO: oriented X3, motor nml, sensation nml, mood/affect nml Discharge Clincal Impression: Abscess, Nephrolithiasis Referrals: Adilson Andrea MD [STAFF PHYSICIAN] - 2 Days Additional Instructions: Flomax 0.4 mg once daily for 5 days it may turn your urine orange. strain your urine and take any stones with you to appt. clindamycin 450 mg three times a day for 10 days. Follow up with primary care next week for recheck or before if not improving as expected. you may need to be referred to a urologist if you continue to have urinary issues. return if worse or seek medical care for increased pain, shortness of breath, unable to urinate, fever, feeling faint or passing out, or any concern. UNDERSTAND THAT THIS IS AN EMERGENCY EVALUATION FOR YOUR COMPLAINT TODAY AND BY NATURE IS LIMITED AND NOT A SUBSTITUTE FOR ONGOING MEDICAL CARE. I HAVE EXPLA INED THE TEST RESULTS AND TREATMENT PLAN- THERE MAY BE A NEED FOR ADDITIONAL TESTING TO FULLY DETERMINE THE EXTENT OF YOUR ILLNESS/INJURY/OR CONCERN SO YOU SHOULD CONTACT AND OR ESTABLISH WITH A PRIMARY CARE PROVIDER (OR REFERRAL DOCTOR IF APPLICABLE) FOR AN APPOINTMENT SOON POSSIBLE Condition: Good Disposition: 01 HOME, SELF-CARE Decision to Admit: NO Date of Decison to Admit: 05/09/18 Decision Time: 15:14
[2018-05-09] MEDS: KETOROLAC TROMETHAMINE 30 MG/1ML VIAL IVP ONE (13:15)
[2018-05-09 14:39] LABS: APPEARANCE,URINE CLEAR (CLEAR); COLOR,URINE YELLOW (YELLOW); OCCULT BLOOD,URINE 3+ (NEGATIVE); PH URINE 5.5 (5.0 - 8.0); UROBILINOGEN URINE 0.2 Eu (0.2-1.0)
[2018-05-09] MEDS: 0.9 % SODIUM CHLORIDE 1,000 ML IV ONE ×2 (15:24→15:25)
[2018-05-09 15:42] VITALS: BP 104/66
== END 2018-05-09 15:35 | disposition home or self-care (01) ==
LOC: ED 12:21
DX: N20.0 Calculus of kidney (principal); L02.91 Cutaneous abscess, unspecified
CPT/HCPCS: 80053; 81002; 85025; 87070; 87086; J1885; J2405; J7030; 96365; 96375; 99284; S1016

== ENCOUNTER 2018-06-22 22:35 | Emergency (ER) | payer OTHER ==
--- NOTE | 2018-06-22 22:45 | ED Physician Documentation ---
General Adult - HISTORIAN Historian: patient - HPI Stated Complaint: chest pain Chief Complaint: Chest Pain Onset: days ago (1) Timing: still present Severity: mild Further Comments: yes (She reports a mid chest pain (per her description) . She states the pain is slightly increased with a deep breath. No fever. Mild cough. She has no nausea or diaphoresis) Last known Well Code/Unknown Code: Unknown - ROS CONST: no problems - PAST HX Past History: A-Fib Immunizations: UTD Allergies/Adverse Reactions: Allergies Allergy/AdvReac Type Severity Reaction Status Date / Time bupropion HCl Allergy Unknown No Reaction Verified 06/22/18 23:31 [From Wellbutrin] carbamazepine [From Tegretol] Allergy rash Verified 06/22/18 23:31 promethazine [From Phenergan] Allergy Rash Verified 06/22/18 23:31 Home Medications: Ambulatory Orders Medication Instructions Recorded Lorazepam [Ativan] 1 mg PO TID u2 11/02/16 Ergocalciferol (Vitamin D2) 50,000 unit PO WEEK 11/10/16 [Vitamin D2] - SOCIAL HX Smoking History: cigarettes Alcohol Use: none Drug Use: none - FAMILY HX Family History: No - VITAL SIGNS Vital Signs: Vital Signs Temp Pulse Resp BP Pulse Ox 104/66 05/09/18 15:35 - REVIEWED ASSESSMENTS Nursing Assessment Reviewed: Yes Vitals Reviewed: Yes Progress - Progress Progress: 0018: results discussed. Pain is slightly improved. Wheezing has resolved DG ED Results Lab/Radiology - Radiology Radiology Impressions: Portable chest Clinical history: Chest pain. Findings: Examination of the chest single portable AP view demonstrates the lungs to be hypoventilated but clear. The cardiovascular and mediastinal silhouettes are within normal limits. Monitor leads superimpose the chest. Impression: 1. Hypoventilation. 2. No active disease. Electronically signed on Jun 23, 2018 12:03:28 AM TUBE ROOM SUPERVISOR by: Raulito Esparza General Adult Physical Exam - PHYSICAL EXAM GENERAL APPEARANCE: no distress EENT: eye inspection normal, no signs of dehydration NECK: normal inspection RESPIRATORY: no resp distress CVS: reg rate & rhythm, heart sounds normal ABDOMEN: soft, no distension BACK: normal inspection SKIN: warm/dry, normal color EXTREMITIES: non-tender, normal range of motion, no evidence of injury, no edema NEURO: oriented X3, CN's nml as tested Discharge Clincal Impression: Chest pain Qualifiers: Chest pain type: unspecified Qualified Code(s): R07.9 - Chest pain, unspecified Referrals: Primary Doctor,No [Primary Care Provider] - 2 Days Comments: 1. Continue home meds 2. Follow up with PCP in 2-4 days 3. Keep [employer] Driver appt in Jul 4. Return to ER for any concerns Condition: Stable Disposition: 01 HOME, SELF-CARE Decision to Admit: NO Date of Decison to Admit: 06/23/18 Decision Time: 00:20
[2018-06-22] MEDS ORDERED: ASPIRIN 81 MG CHEW TAB PO ONE (23:18)
[2018-06-23] MEDS ORDERED: IPRATROPIUM/ALBUTEROL SULFATE 3 ML AMPUL.NEB NEB ONE (00:05)
[2018-06-23 02:03] VITALS: BP 127/62
--- NOTE | 2018-06-23 06:41 | Diagnostic Imaging Report ---
AMI WASSERMAN [facility] [address] [facility]. [address] [place], [place]. [address] Report Submission Date: Jun 23, 2018 12:03:28 AM ADVERTISING OPERATIONS MANAGER Patient Study Name: CATRACHITO ARIAS Date: Jun 22, 2018 11:32:19 PM ADVERTISING OPERATIONS MANAGER Modality Type: DX Gender: F Description: CHEST : 81 Institution: [facility] Physician: AMI WASSERMAN Portable chest Clinical history: Chest pain. Findings: Examination of the chest single portable AP view demonstrates the lungs to be hypoventilated but clear. The cardiovascular and mediastinal silhouettes are within normal limits. Monitor leads superimpose the chest. Impression: 1. Hypoventilation. 2. No active disease. Electronically signed on Jun 23, 2018 12:03:28 AM ADVERTISING OPERATIONS MANAGER by: Raulito HERNANDEZ
[2018-06-23 07:54] LABS: BASOPHILS % 0.5 (0.0-1.5); EOSINOPHILS % 2.6 % (0.0-6.8); MONOCYTES % 8.1 % (0.0-11.0)
[2018-06-23 07:55] LABS: NEUTROPHILS # 5.7 # k/uL (1.4-7.7); eGFR (Non-African) > 60
== END 2018-06-23 00:27 | disposition home or self-care (01) ==
LOC: ED 22:35
DX: R07.89 Other chest pain (principal); Z32.02 Encounter for pregnancy test, result negative; Z86.79 Personal history of other diseases of the circulatory system
CPT/HCPCS: 71045; 80053; 81025; 84484; 85025; 85379; 94640; 99282; 99283; S1016

== ENCOUNTER 2018-11-24 00:01 | Emergency (ER) | payer OTHER ==
[2018-11-24] MEDS ORDERED: CIPROFLOXACIN HCL 500 MG TABLET PO ONE (00:22)
--- NOTE | 2018-11-24 00:29 | ED Physician Documentation ---
Female Urogenital Problems - HISTORIAN Historian: patient, spouse - HPI Stated Complaint: "I have been having UTI sx's for the last 4 days and now my kidneys hurt" Chief Complaint: Female Urogenital Problems Additional Information: Patient is a 33-year-old female who presents to the ER with a 4 day history of burning with urination. She states last night she started having discomfort in her back. She denies any f/c/n/v/d. Onset: days ago (4 days ago) Severity: moderate Location of Pain: low back pain - Associated Symptoms Urinary Symptoms: burning w/ urination Discharge: denies: vaginal discharge - ROS CONST: none GI/: denies: nausea, vomiting CVS/RESP: none EYES/ENT: none NEURO/PSYCH: none MS/SKIN/LYMPH: none - PAST HX Past History: other (depression) Other History: none Surgeries/Procedures: other (nasal septum) Immunizations: UTD Allergies/Adverse Reactions: Allergies Allergy/AdvReac Type Severity Reaction Status Date / Time bupropion HCl Allergy Unknown No Reaction Verified 11/24/18 00:24 [From Wellbutrin] carbamazepine [From Tegretol] Allergy rash Verified 11/24/18 00:24 promethazine [From Phenergan] Allergy Rash Verified 11/24/18 00:24 Home Medications: Ambulatory Orders Medication Instructions Recorded Lorazepam [Ativan] 1 mg PO TID u2 11/02/16 Ergocalciferol (Vitamin D2) 50,000 unit PO WEEK 11/10/16 [Vitamin D2] - SOCIAL HX Smoking History: greater than 1 pack/day Alcohol Use: none Drug Use: none - FAMILY HX Family History: none - VITAL SIGNS Vital Signs: Vital Signs Temp Pulse Resp BP Pulse Ox 98.5 F 86 16 130/79 98 11/24/18 00:15 11/24/18 00:15 11/24/18 00:15 11/24/18 00:15 11/24/18 00:15 - REVIEWED ASSESSMENTS Nursing Assessment Reviewed: Yes Vitals Reviewed: Yes ED Results Lab/Radiology - Orders Orders: ED Orders Category Date Time Status Ciprofloxacin HCl [Cipro] Med 11/24/18 00:22 Once 500 mg PO NOW ONE Female Urogenital Problems - EXAM General Appearance: alert, mild distress EENT: eye inspection normal, ENT inspection normal, KATERINE Neck: nml inspection Respiratory: breath sounds nml CVS: heart sounds normal, equal pulses Abdomen: soft, non-tender, no distention Back: non-tender Skin: color nml, no rash, warm,dry Extremities: non-tender, normal range of motion Neuro: oriented X3, CN's nml as tested, motor nml, sensation nml, mood/affect nml, cognition normal Discharge Clincal Impression: Urinary tract infection Referrals: Primary Doctor,No [Primary Care Provider] - 2 Days Additional Instructions: Take Cipro 500 mg by mouth twice a day for 7 days Increase fluid intake (no caffeine) Follow up with PCP next week as needed Condition: Good Disposition: 01 HOME, SELF-CARE Decision to Admit: NO Decision Time: 00:26
[2018-11-24 01:26] VITALS: BP 104/66
[2018-11-24 07:10] LABS: APPEARANCE,URINE CLEAR (CLEAR); COLOR,URINE YELLOW (YELLOW); OCCULT BLOOD,URINE 2+ (NEGATIVE); PH URINE 5.5 (5.0 - 8.0); UROBILINOGEN URINE 0.2 Eu (0.2-1.0)
== END 2018-11-24 00:35 | disposition home or self-care (01) ==
LOC: ED 00:01
DX: N39.0 Urinary tract infection, site not specified (principal)
CPT/HCPCS: 81002; 99283

== ENCOUNTER 2018-12-01 10:38 | Emergency (ER) | payer OTHER ==
--- NOTE | 2018-12-01 10:51 | ED Physician Documentation ---
Female Urogenital Problems - HISTORIAN Historian: patient - HPI Stated Complaint: urinary burning and pain - no fever Chief Complaint: Female Urogenital Problems Onset: other (total 2 weeks ago ) Severity: moderate Location of Pain: denies: abdominal pain, pelvic pain, low back pain, vaginal pain Further Comments: yes (Per report of pt she notes a small amount of burning with urination x 2 weeks ago . She was seen here in the ER for burning and visable blood in urine on 11.24.18 she was treated and tolerated meds well. She felt "almost all the way better" and after stopping meds due to completion she states this am she started to have increased burning etc. No fever. No current visable blood in urine . No vaginal discharge) - Vaginal Bleeding Sexual History: active - Associated Symptoms Urinary Symptoms: discomfort w/ urination, burning w/ urination, urgency w/ urin ation, pain w/ urination Discharge: denies: vaginal discharge, vaginal fluid leakage, odorous discharge, yellowish discharge - ROS CONST: none GI/: nausea (while taking Cipro - no current nausea ) - PAST HX Past History: other (depression ) Immunizations: UTD Allergies/Adverse Reactions: Allergies Allergy/AdvReac Type Severity Reaction Status Date / Time bupropion HCl Allergy Unknown No Reaction Verified 12/01/18 10:58 [From Wellbutrin] carbamazepine [From Tegretol] Allergy rash Verified 12/01/18 10:58 promethazine [From Phenergan] Allergy Rash Verified 12/01/18 10:58 Home Medications: Ambulatory Orders Medication Instructions Recorded Lorazepam [Ativan] 1 mg PO TID u2 11/02/16 Ergocalciferol (Vitamin D2) 50,000 unit PO WEEK 11/10/16 [Vitamin D2] - SOCIAL HX Smoking History: non-smoker Alcohol Use: none Drug Use: none - FAMILY HX Family History: none - VITAL SIGNS Vital Signs: Vital Signs Temp Pulse Resp BP Pulse Ox 130/79 11/24/18 00:30 - REVIEWED ASSESSMENTS Nursing Assessment Reviewed: Yes Vitals Reviewed: Yes Female Urogenital Problems - EXAM General Appearance: no acute distress, alert EENT: eye inspection normal, no signs of dehydration Neck: nml inspection Respiratory: no resp. distress CVS: reg rate & rhythm, heart sounds normal, equal pulses Abdomen: soft, non-tender, no distention, nml bowel sounds, tenderness Back: non-tender, painless ROM. No: CVA tenderness Skin: color nml, no rash, warm,dry Extremities: non-tender, normal range of motion, no evidence of injury Neuro: oriented X3 Discharge Clincal Impression: Urinary tract infection Qualifiers: Urinary tract infection type: site unspecified Hematuria presence: without hematuria Qualified Code(s): N39.0 - Urinary tract infection, site not specified Referrals: Primary Doctor,No [Primary Care Provider] - 2 Days Comments: 1. Bactrim DS take 1 by mouth twice daily x 10 days 2. Zofran 4 mg take 1 by mouth every 8 hours as needed for nausea 3. INCREASE water and probiotics 4. See PCP In 7-10 days to re check urine 5. Return to ER for any increasing concerns Condition: Stable Disposition: 01 HOME, SELF-CARE Decision to Admit: NO Date of Decison to Admit: 12/01/18 Decision Time: 11:14
[2018-12-01 11:09] LABS: APPEARANCE,URINE CLOUDY (CLEAR); COLOR,URINE YELLOW (YELLOW)
[2018-12-01 11:10] LABS: OCCULT BLOOD,URINE 1+ (NEGATIVE); UROBILINOGEN URINE 0.2 Eu (0.2-1.0)
[2018-12-01 11:24] VITALS: BP 104/66
== END 2018-12-01 11:17 | disposition home or self-care (01) ==
LOC: ED 10:38
DX: N39.0 Urinary tract infection, site not specified (principal); B96.20 Unspecified Escherichia coli [E. coli] as the cause of diseases classified elsewhere; Z16.24 Resistance to multiple antibiotics
CPT/HCPCS: 81002; 81025; 87086; 99283

== ENCOUNTER 2019-03-19 11:23 | Outpatient (CLI) | payer OTHER ==
[2019-03-19 11:54] LABS: BASOPHILS % 0.6 % (0.0-1.5); NEUTROPHILS # 7.4 # k/uL (1.4-7.7)
[2019-03-19 12:38] LABS: eGFR (Non-African) > 60
== END 2019-03-19 11:25 ==
LOC: LAB 11:23
PROVIDERS: ATTEND Nurse Practitioner Family
DX: N92.1 Excessive and frequent menstruation with irregular cycle (principal); E28.2 Polycystic ovarian syndrome
CPT/HCPCS: 36415; 80053; 82728; 83540; 83550; 84439; 84443; 84481; 85025; 88148; G0143

== ENCOUNTER 2019-04-11 13:10 | Emergency (ER) | payer OTHER ==
[2019-04-11] MEDS: ALBUTEROL SULFATE 2.5 MG/3 ML AMPUL.NEB NEB ONE (13:44)
[2019-04-11] MEDS: IPRATROPIUM/ALBUTEROL SULFATE 3 ML AMPUL.NEB NEB ONE ×2 (13:54→14:46)
--- NOTE | 2019-04-11 14:06 | Diagnostic Imaging Report ---
MARISABEL ULRICH [facility] [address] [address] Report Submission Date: Apr 11, 2019 2:00:24 PM CDT Patient Study Name: CATRACHITO ARIAS Date: Apr 11, 2019 1:28:20 PM CDT Modality Type: DX Gender: F Description: CHEST 2VIEW : 81 Institution: [facility] Physician: MARISABEL ULRICH Chest PA and lateral views Clinical history: Cough and dyspnea for 2 days. Normal heart shadow and mediastinum. Very small linear infiltrate in the right lung base. No effusion. Normal left lung. Normal bony thorax. No pneumothorax. Impression: Very small linear infiltrate in the right lower lobe Electronically signed on Apr 11, 2019 2:00:24 PM CDT by: Scott HERNANDEZ
--- NOTE | 2019-04-11 14:21 | ED Physician Documentation ---
Upper Respiratory Symptoms - HISTORIAN Historian: patient, friend - HPI Stated Complaint: SOA Chief Complaint: Cough/ Upper Respiratory Additional Information: exab copd prog over past 2 weeks much worse past 1-2 days w/ severe exp wheeze and cough Context: recent foreign travel, other (has quit cigarettes past few days) Severity: moderate Associated Symptoms: hoarseness, allergy, productive cough, shortness of breath, hurts to breathe. denies: fever, chills, runny nose, bloody cough Worsened by Deep Breath: Yes - ROS CONST/EYES: denies: weakness, eye redness, eye itching CVS/RESP: chest pain, shortness of breath, palpitations GI/: none NEURO/PSYCH: anxiety. denies: fainting, dizziness, confusion - PAST HX Lung Disease: asthma, COPD, other (non alcoholic cirrhosis anxiety htn at fib pneumonia deepti) PE Risk Factors: cast Allergies/Adverse Reactions: Allergies Allergy/AdvReac Type Severity Reaction Status Date / Time bupropion HCl Allergy Unknown No Reaction Verified 04/11/19 13:27 [From Wellbutrin] carbamazepine [From Tegretol] Allergy rash Verified 04/11/19 13:27 promethazine [From Phenergan] Allergy Rash Verified 04/11/19 13:27 Home Medications: Ambulatory Orders Medication Instructions Recorded Lorazepam [Ativan] 1 mg PO TID u2 11/02/16 Ergocalciferol (Vitamin D2) 50,000 unit PO WEEK 11/10/16 [Vitamin D2] Doxycycline Hyclate [Vibra-Tabs] 100 mg PO BID #20 tablet 04/11/19 - SOCIAL HX Smoking History: greater than 1 pack/day Alcohol Use: none Drug Use: none - FAMILY HX Family History: no significant history - VITAL SIGNS Vital Signs: Vital Signs Temp Pulse Resp BP Pulse Ox 98.4 F 78 16 130/89 98 04/11/19 13:23 04/11/19 15:46 04/11/19 15:46 04/11/19 15:46 04/11/19 15:46 - REVIEWED ASSESSMENTS Nursing Assessment Reviewed: Yes Vitals Reviewed: Yes ED Results Lab/Radiology - Lab Results Lab Results: Lab Results 04/11/19 04/11/19 14:29 14:29 WBC 10.60 K/ul K/ul (4.00-12.00) RBC 5.25 M/ul H M/ul (3.90-5.20) Hgb 14.8 g/dL g/dL (11.5-16.0) Hct 43.6 % % (34.5-46.5) MCV 83.0 fl fl (80.0-100.0) MCH 28.1 pg pg (28.0-34.0) MCHC 33.9 g/dL g/dL (30.0-36.0) RDW 14.0 % % (11.3-14.3) Plt Count 266 K/mm3 K/mm3 (130-400) Neut % (Auto) 57.6 % % (39.0-79.0) Lymph % (Auto) 33.2 % % (16.0-50.0) Linn % (Auto) 6.3 % % (0.0-11.0) Eos % (Auto) 2.3 % % (0.0-6.8) Baso % (Auto) 0.6 % % (0.0-1.5) Neut # (Auto) 6.1 # k/uL # k/uL (1.4-7.7) Lymph # (Auto) 3.5 # k/uL # k/uL (0.6-4.0) Linn # (Auto) 0.7 # k/uL # k/uL (0.0-0.9) Eos # (Auto) 0.2 # k/uL # k/uL (0.0-0.6) Baso # (Auto) 0.1 # k/uL # k/uL (0.0-0.5) Sodium 140 mmol/L mmol/L (137-145) Potassium 3.5 mmol/L mmol/L (3.5-5.1) Chloride 107 mmol/L mmol/L (98-107) Carbon Dioxide 21 mmol/L L mmol/L (22-30) Anion Gap 15.5 BUN 10 mg/dL mg/dL (7-17) Creatinine 0.40 mg/dL L mg/dL (0.52-1.04) Estimated Creat Clear 509 Est GFR ( Amer) > 60 (60 - ) Est GFR (Non-Af Amer) > 60 (60 - ) Glucose 118 mg/dL H mg/dL (74-106) Calcium 9.4 mg/dL mg/dL (8.4-10.2) Total Bilirubin 0.6 mg/dL mg/dL (0.2-1.3) AST 25 U/L U/L (15-46) ALT 11 U/L L U/L (13-69) Alkaline Phosphatase 112 U/L U/L (38-126) Total Protein 8.1 g/dL g/dL (6.3-8.2) Albumin 4.2 g/dL g/dL (3.5-5.0) - Orders Orders: ED Orders Category Date Time Status CHEST 2VIEW [RAD] Stat Exams 04/11/19 Completed CBC/PLATELET/DIFF Routine Lab 04/11/19 14:29 Completed CMP Routine Lab 04/11/19 14:29 Completed Albuterol Sulfate [Ventolin Soln] Med 04/11/19 13:29 Discontinued 2.5 mg NEB NOW ONE Inhaler, Assist Devices [Easivent] Med 04/11/19 15:28 Discontinued 1 each INH .STK-MED ONE Ipratropium/Albuterol Sulfate [Duoneb] Med 04/11/19 13:51 Discontinued 3 ml NEB NOW ONE Ipratropium/Albuterol Sulfate [Duoneb] Med 04/11/19 14:34 Discontinued 3 ml NEB NOW ONE methylPREDNISolone ACETATE [DEPO-Medrol] Med 04/11/19 14:41 Discontinued 80 mg IM .STK-MED ONE methylPREDNISolone ACETATE [DEPO-Medrol] Med 04/11/19 14:36 Discontinued 80 mg IM NOW ONE methylPREDNISolone SOD SUCC [SOLU-Medrol] Med 04/11/19 14:38 Discontinued 125 mg .ROUTE .STK-MED ONE Upper Respiratory Symptoms - EXAM General Appearance: moderate distress EENT: eyes nml inspection Neck: normal inspection. No: lymphadenopathy, carotid bruit Respiratory: speaks full sentences, respiratory distress, prolonged expirations, wheezes, rales, rhonchi, stridor Abdomen: non-tender CVS: reg rate & rhythm, heart sounds normal Skin: color nml, no rash, warm,dry. No: cyanosis, diaphoresis Extremities: non-tender, normal range of motion Neuro/Psych: oriented x3, mood/affect nml Discharge Clincal Impression: PNEUMONIA, ACUTE EXABERATION COPD Prescriptions: Doxycycline Hyclate [Vibra-Tabs] 100 mg PO BID #20 tablet Referrals: Primary Doctor,No [Primary Care Provider] - 2 Days Comments: RX FOR DOXYCYCLINE AND HOME NEB W/ALBUTEROL AMPULES Condition: Good Disposition: 01 HOME, SELF-CARE Decision to Admit: NO Decision Time: 20:03
[2019-04-11 14:32] LABS: BASOPHILS % 0.6 % (0.0-1.5); NEUTROPHILS # 6.1 # k/uL (1.4-7.7)
[2019-04-11] MEDS ORDERED: methylPREDNISolone ACETATE 80 MG/ML VIAL IM ONE (14:41)
[2019-04-11] MEDS: methylPREDNISolone SOD SUCC 125 MG/2 ML VIAL ONE (14:46)
[2019-04-11 14:47] LABS: eGFR (Non-African) > 60
[2019-04-11] MEDS: methylPREDNISolone ACETATE 80 MG/ML VIAL IM ONE (14:49)
[2019-04-11] MEDS ORDERED: INHALER, ASSIST DEVICES 1 EACH SPACER INH ONE (15:28)
[2019-04-11 15:49] VITALS: BP 130/89
== END 2019-04-11 15:47 | disposition home or self-care (01) ==
LOC: ED 13:10
DX: J18.9 Pneumonia, unspecified organism (principal); J44.1 Chronic obstructive pulmonary disease with (acute) exacerbation; F17.210 Nicotine dependence, cigarettes, uncomplicated
CPT/HCPCS: 71046; 80053; 85025; 94640; 96372; 99284; J1040

== ENCOUNTER 2019-06-20 21:06 | Emergency (ER) | payer OTHER ==
--- NOTE | 2019-06-20 21:26 | ED Physician Documentation ---
General Adult - HISTORIAN Historian: patient - HPI Stated Complaint: left side pain Chief Complaint: General Adult Additional Information: Patient presents to ED with a 3 day history of left sided pain(LUQ) which started while she was watching TV on Saturday night. She states the pain is dull, aching, 5/10, radiating up to her left shoulder. The pain is constant, worse went she bends over to pick something up. She denies fever, chills, shortness of breath, nausea, vomiting, diarrhea, diaphoresis. Patient states she was taking tylenol and ibuprofen which relieved the pain, however, today it was not completely relieving the pain (only took the edge off). Onset: days ago (3) Timing: still present Severity: moderate - ROS CONST: denies: fever, sweating, weakness EYES/ENT: none CVS/RESP: denies: chest pain, shortness of breath, cough GI/: denies: vomiting, nausea, diarrhea MS/SKIN/LYMPH: denies: leg swelling NEURO/PSYCH: denies: headache, dizziness - PAST HX Past History: none Other History: none Surgeries/Procedures: none Allergies/Adverse Reactions: Allergies Allergy/AdvReac Type Severity Reaction Status Date / Time bupropion HCl Allergy Unknown No Reaction Verified 06/20/19 21:45 [From Wellbutrin] carbamazepine [From Tegretol] Allergy rash Verified 06/20/19 21:45 promethazine [From Phenergan] Allergy Rash Verified 06/20/19 21:45 Home Medications: Ambulatory Orders Medication Instructions Recorded Lorazepam [Ativan] 1 mg PO TID u2 11/02/16 Ergocalciferol (Vitamin D2) 50,000 unit PO WEEK 11/10/16 [Vitamin D2] Doxycycline Hyclate [Vibra-Tabs] 100 mg PO BID #20 tablet 04/11/19 Hydrocodone/Acetaminophen [[place] 1 each PO Q6 PRN #12 tablet 06/20/19 5-325 Tablet] - SOCIAL HX Smoking History: non-smoker Alcohol Use: none Drug Use: none - FAMILY HX Family History: No - VITAL SIGNS Vital Signs: Vital Signs Temp Pulse Resp BP Pulse Ox 130/89 04/11/19 15:46 - REVIEWED ASSESSMENTS Nursing Assessment Reviewed: Yes Vitals Reviewed: Yes Progress - EKG/XRAY/CT EKG: NSR Comments: 2130 Sinus Tachycardia [address] elevation ED Results Lab/Radiology - Lab Results Lab Results: UA - Negative HCG - Negative - Radiology Radiology Impressions: Report Submission Date: Jun 20, 2019 10:29:24 PM SENIOR MORTGAGE UNDERWRITER Patient Study Name: CATRACHITO ARIAS Date: Jun 20, 2019 9:56:54 PM SENIOR MORTGAGE UNDERWRITER Modality Type: CT\SR Gender: F Description: CT ABD PELVIS W/O CO : 81 Institution: [facility] Physician: JULITO MONTENEGRO EXAMINATION: CT ABD PELVIS W/O CO HISTORY: Order states: LUQ ABD pain Pt states: LUQ pain since Wed prior ct done 04/23/2018 (Hx) / ITS.REASON LUQ abd pain Note time : 06/20/2019 10:22:47 PM User : Moni Gonzalez Order states: LUQ ABD pain Pt states: LUQ pain since Wed prior ct done 04/23/2018 (DICOM Hx) (DICOM Hx) TECHNIQUE: CT of the abdomen and pelvis was performed without contrast according to standard protocol. COMPARISON: 04/23/2018 FINDINGS: The aorta is normal in caliber. The visible lung bases are clear. The heart size is normal. There are calcified granulomas throughout the liver. Otherwise the liver appears normal. The gallbladder appears normal. The intrahepatic and extrahepatic bile ducts are nondilated. There are calcified granulomas throughout the spleen. A 2.4 cm right adrenal myelolipoma is unchanged. Otherwise the spleen, pancreas, and adrenal glands appear normal. The kidneys are normal in size. There is no evidence of hydronephrosis. There is bilateral nonobstructing nephrolithiasis. The distal esophagus and stomach appear normal. The small bowel and colon are normal in caliber without evidence of wall thickening or obstruction. The appendix appears normal. No free air or free fluid is identified in the abdomen. There is no abdominal lymphadenopathy. The urinary bladder is distended with fluid and appears normal. No free fluid is seen in the pelvis. Bone windows demonstrate no suspicious lytic or blastic lesions. The visible osseous structures are intact. IMPRESSION: 1. No acute process identified in the abdomen or pelvis. 2. Bilateral nephrolithiasis. Electronically signed on Jun 20, 2019 10:29:24 PM SENIOR MORTGAGE UNDERWRITER by: Cristi Darby - Orders Orders: ED Orders Category Date Time Status CBC/PLATELET/DIFF Routine Lab 06/20/19 Ordered CMP Routine Lab 06/20/19 Ordered SERUM HCG Stat Lab 06/20/19 Ordered UA W/MICRO IF INDICATED Routine Lab 06/20/19 21:13 Ordered General Adult Physical Exam - PHYSICAL EXAM GENERAL APPEARANCE: no distress EENT: KATERINE NECK: supple RESPIRATORY: no resp distress, chest non-tender, breath sounds normal CVS: reg rate & rhythm, heart sounds normal ABDOMEN: soft, normal bowel sounds, no distension, non-tender BACK: normal inspection SKIN: warm/dry, normal color EXTREMITIES: non-tender, no edema NEURO: oriented X3, mood/affect nml Discharge Clincal Impression: Bilateral nephrolithiasis Prescriptions: Hydrocodone/Acetaminophen [Ven[place] 5-325 Tablet] 1 each PO Q6 PRN #12 tablet PRN Reason: kidney stone pain Referrals: Ivonne Collazo ACTUARIAL CLERK [Primary Care Provider] - 2 Days Additional Instructions: 1. Ibuprofen 600mg every 6 hours as needed for pain 2. [place] every 6 hours as needed for break through pain 3. Drink plenty of fluid to flush kidney stones. Target daily water intake 4 liters 4. Do NOT drink soda, tea, energy drinks or alcohol 5. Follow up with PCP within 1 week 6. Return to ER for new or worsening symptoms Condition: Stable Disposition: 01 HOME, SELF-CARE Decision to Admit: NO Date of Decison to Admit: 06/20/19 Decision Time: 22:44
[2019-06-20 21:59] LABS: eGFR (Non-African) > 60
--- NOTE | 2019-06-20 22:33 | Diagnostic Imaging Report ---
PATIENT MR#: [id number] PATIENT PATIENT NAME: CATRACHITO ARIAS DATE OF : 1985 REFERRING PHYSICIAN: Vickie Morgan EXAM DATE: 06/20/2019 ACCESSION NUMBER: [id number] EXAM DESCRIPTION: CT ABD PELVIS W/O CO EXAMINATION: CT ABD PELVIS W/O CO pain Note time : 06/20/2019 10:22:47 PM User : Anastacia Gonzalez Order states: LUQ ABD pain Pt states: LUQ pain since Wed prior ct done 04/23/2018 (DICOM Hx) (DICOM Hx) TECHNIQUE: CT of the abdomen and pelvis was performed without contrast according to standard protocol . COMPARISON: 04/23/2018 FINDINGS: The aorta is normal in caliber. The visible lung bases are clear. The heart size is normal. There are calcified granulomas throughout the liver. Otherwise the liver appears normal. The gallblad tsering appears normal. The intrahepatic and extrahepatic bile ducts are nondilated. There are calcified granulomas throughou t the spleen. A 2.4 cm right adrenal myelolipoma is unchanged. Otherwise the spleen, pancreas, and adrenal glands appear normal. The kidneys are normal in size. There is no evidence of hydronephrosis. There is bilateral nonobstructing nephrol ithiasis. The distal esophagus and stomach appear normal. The small bowel and colon are normal in caliber witho ut evidence of wall thickening or obstruction. The appendix appears normal. No free air or free fluid is identified in th e abdomen. There is no abdominal lymphadenopathy. The urinary bladder is distended with fluid and appears normal. No free fluid is seen in the pelvis. Bone windows demonstrate no suspicious lytic or blastic lesions. The visible osseous structures are i ntact. IMPRESSION: 1. No acute process identified in the abdomen or pelvis. 2. Bilateral nephrolithiasis. Read by: Cristi Darby Transcribed by: Transcribed Date: Electronically signed by: Cristi Darby Date signed: 06/20/2019 10:32:50 PM
[2019-06-20] MEDS: HYDROcodone /APAP 5/325 1 EACH TABLET PO ONE (22:52)
[2019-06-20 23:00] VITALS: BP 129/88
[2019-06-21 08:56] LABS: BASOPHILS % 0.8 % (0.0-1.5); NEUTROPHILS # 9.3 # k/uL (1.4-7.7); SEGMENTED NEUTROPHILS % 77 % (39-79)
[2019-06-22 06:13] LABS: OCCULT BLOOD,URINE TRACE (NEGATIVE); UROBILINOGEN URINE 0.2 Eu (0.2-1.0)
== END 2019-06-20 22:55 | disposition home or self-care (01) ==
LOC: ED 21:06
DX: N20.0 Calculus of kidney (principal)
CPT/HCPCS: 74176; 80053; 81002; 81025; 84484; 85025; 93005; 99283; 99284; A9270; 84703

== ENCOUNTER 2019-06-22 10:40 | Outpatient (CLI) | payer OTHER ==
[2019-06-22 12:03] LABS: TSH 3.15 mIU/l (0.465-4.685)
== END 2019-06-22 10:45 ==
LOC: LAB 10:40
PROVIDERS: ATTEND Nurse Practitioner Family
DX: E78.5 Hyperlipidemia, unspecified (principal); I10 Essential (primary) hypertension; R73.9 Hyperglycemia, unspecified; K76.0 Fatty (change of) liver, not elsewhere classified
CPT/HCPCS: 36415; 80061; 80076; 83036; 84443

== ENCOUNTER 2019-06-30 10:04 | Outpatient (CLI) | payer OTHER ==
[2019-06-30] MEDS ORDERED: ALBUTEROL SULFATE 2.5 MG/3 ML AMPUL.NEB NEB ONE (10:10)
== END 2019-06-30 10:14 ==
LOC: RT 10:04
PROVIDERS: ATTEND Nurse Practitioner Family
DX: J18.9 Pneumonia, unspecified organism (principal); J44.9 Chronic obstructive pulmonary disease, unspecified
CPT/HCPCS: 94060